=== PATIENT | female | born 1985 | race Caucasian/White ===

== ENCOUNTER 2019-07-13 16:48 | Emergency (ER) | payer OTHER ==
[2019-07-13] MEDS ORDERED: ACETAMINOPHEN 325 MG TABLET PO ONE (17:04)
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
[2019-07-14] MEDS ORDERED: IBUPROFEN 600 MG TABLET PO ONE (00:42)
[2019-07-14 03:51] VITALS: BP 142/57
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
== END 2019-07-14 03:35 | disposition home or self-care (01) ==
LOC: ER 16:48
DX: S02.2XXA Fracture of nasal bones, initial encounter for closed fracture (principal); S09.90XA Unspecified injury of head, initial encounter; H57.12 Ocular pain, left eye; R51 Headache; M54.2 Cervicalgia; Y04.0XXA Assault by unarmed brawl or fight, initial encounter; F17.200 Nicotine dependence, unspecified, uncomplicated
CPT/HCPCS: 70450; 70486; 72070; 72125; 99284